=== PATIENT | male | born 1975 | race Caucasian/White ===

== ENCOUNTER 2016-05-28 14:00 | Emergency (ER) | payer MEDICARE, OTHER | END 2016-05-28 15:26 | disposition home or self-care (01) | LOC: ER1 14:00 | DX: S00.81XA Abrasion of other part of head, initial encounter (principal); W18.39XA Other fall on same level, initial encounter; Y92.008 Other place in unspecified non-institutional (private) residence as the place of occurrence of the external cause | CPT/HCPCS: 99283 ==